=== PATIENT | female | born 1950 | race Caucasian/White ===

== ENCOUNTER 2023-06-09 21:51 | Inpatient (IN) | payer MEDICARE, BC ==
[~2023-06-09] VITALS: Ht 162.6 cm; Wt 51.4 kg
[~2023-06-09 21:51] MED LIST: ASPI325T6 PO; BENICAR40 MG PO; CEPHALEXIN500 M1 PO; COLACE 100100 MG/CAP PO; COZAAR100 MG PO; DULCOLAX S10 MG/SUPP RC; LEVAQUIN 5500 MG/TA1 PO; LIPITOR20 MG PO; LOVENOX 4040 MG/0.4 SQ; MILK OF MA400 MG/52 PO; MULTI VITAMINS1 TAB PO; NORCO 325 MG-51 TAB PO; NORVASC 10MG10 MG PO; PERCOCET 325 MG1 TA2 PO; ROXICODONE 55 MG/TAB PO; SENOKOT S 50 MG1 TAB PO; TENORMIN 5050 MG/TAB PO; VITAMIN C500 MG PO; ZYRTEC 10MG10 MG PO
[2023-06-09 23:30] VITALS: BP 132/80; PULSE 104; TEMP 97.5
[2023-06-09 23:45] VITALS: BP 162/81; PULSE 99
[2023-06-10] VITALS (22 sets, daily range): BP systolic 58–195; BP diastolic 39–83; PULSE 30–101; TEMP 97.3–97.9
[2023-06-10 00:28] LABS: EOS % 0.6 % (0.0-4.0); GRAN # 5.7 K/mm3 (1.4-6.5); LYMPH # 0.7 K/mm3 (1.2-3.4); LYMPH % 9.3 % (20.0-51.0); MEAN CELL VOLUME 77 fl (80.0-100.0); MEAN CORPUSCULAR HGB CONC 32 g/dl (33.0-37.0); MEAN PLATELET VOLUME 10.2 fl (7.4-10.4); MONO # 0.6 K/mm3 (0.1-0.6); MONO % 8.7 % (1.7-9.3); PLATELET COUNT 207 K/mm3 (130-400); RED BLOOD COUNT 3.88 M/mm3 (4.10-5.30); REDCELL DISTRIBUTION WIDTH-CV 21.7 % (11.5-14.5)
[2023-06-10] MEDS ORDERED: Metoprolol Tartrate 50 MG TAB PO ONE (00:30)
[2023-06-10 00:31] LABS: HEMATOCRIT 29.9 % (37.0-47.0); HEMOGLOBIN 9.6 g/dl (12.5-16.0); MEAN CORPUSCULAR HEMOGLOBIN 25 pg (27-31)
[2023-06-10] MEDS ORDERED: Acetaminophen 325 MG TAB PO PRN (00:45)
[2023-06-10] MEDS ORDERED: Ondansetron 4 MG/2 ML VIAL IV PRN (00:45)
[2023-06-10 00:58] LABS: ALANINE AMINOTRANSFERASE 29 U/L (0-55); ALBUMIN 3.2 gm/dL (3.4-4.8); ALKALINE PHOSPHATASE 76 U/L (40-150); ANION GAP 28 mmol/L (7-16); AST,SGOT 44 U/L (5-34); BILIRUBIN,TOTAL 0.9 mg/dL (0.2-1.2); BLOOD UREA NITROGEN 11 mg/dL (10-20); CALCIUM 8.2 mg/dL (8.4-10.2); CHLORIDE 101 mmol/L (98-107); CREATININE, serum 1.44 mg/dL (0.57-1.11); GLUCOSE 115 mg/dL (70-99); MAGNESIUM 1.5 mg/dL (1.6-2.6); SODIUM 142 mmol/L (136-145); TOTAL PROTEIN 5.6 gm/dL (6.2-8.1)
[2023-06-10 00:59] LABS: POTASSIUM 2.6 mmol/L (3.5-4.5)
[2023-06-10 01:00] LABS: ALCOHOL(ethanol),MEDICAL < 10 mg/dL (0-10); CARBON DIOXIDE 13 mmol/L (23-31)
[2023-06-10] MEDS ORDERED: Heparin/D5W 250 ML IV SCH (01:00)
[2023-06-10] MEDS ORDERED: Heparin 5,000 UNITS/ML 1 ML VIAL IV PRN (01:00)
[2023-06-10] MEDS ORDERED: Heparin 5,000 UNITS/ML 1 ML VIAL IV ONE (01:00)
[2023-06-10] MEDS ORDERED: Magnesium Sulfate 4% 50 ML IV ONE (01:15)
[2023-06-10 01:29] LABS: ARTERIAL BLD GAS O2 SATURATION 96.7 % (92-100); ARTERIAL BLD GAS TCO2 CT 15.1; ARTERIAL BLOOD GAS BASE EXCESS -8.5 (-2-2); ARTERIAL BLOOD GAS HCO3 14.4 meq/L (22-26); ARTERIAL BLOOD GAS PO2 93.6 mmHg (80-100); ARTERIAL BLOOD GAS pH 7.42 (7.35-7.45)
[2023-06-10] MEDS ORDERED: NS 1,000 ML IV SCH (01:30)
[2023-06-10 01:32] LABS: ARTERIAL BLOOD GAS PCO2 22.8 mmHg (35-45)
[2023-06-10] MEDS ORDERED: Sodium Bicarbonate 8.4% 50 MEQ/50 ML SYRINGE IV ONE (02:00)
--- NOTE | 2023-06-10 02:33 | NUR ---
Patient arrived to medical unit from [facility] via EMS at approximately 2330. Alert and oriented, and able to make needs known. Denies having pain and discomfort. Peripheral IV to left AC. Started 2nd IV site to right forearm. Currently patient has Cardizem drip and Heparin drip running per orders to IV site on right forearm, and NS and Magnesium running to IV site to left AC. Received Sodium Bicarb IV per orders. Denie SOB and dyspnea. LS CTA. HRI. Telemetry shows A-fib, rate controlled. BSAx4. Indwelling ross catheter present, draining edward, clear urine. UDS sent to lab. Patient's skin is very dry and flaky. Has redness to coccyx. TAMIKO Goodson is aware of critical troponin, potassium, and CO2. Patient in bed with call light within reach. High fall risk rpecautiosn in place. Bed alarm on.
[2023-06-10 02:46] LABS: TRICYCLIC ANTIDEPRESS URINE NEGATIVE (NEGATIVE)
--- NOTE | 2023-06-10 05:30 | NUR ---
Patient's HR 55-58. Call placed to TAMIKO Goodson. New order to decrease rate on Cardizem drip from 15 ml/hr to 5 ml/hr. Order placed for EKG, RT notified. Cardizem drip decreased per orders. Requested to be called if continues to sustain less than 60 in 30 minutes.
--- NOTE | 2023-06-10 06:05 | NUR ---
Patient had been showing sinus gordo on telemetry. EKG shows A-fib, rate of 63. Telemetry currently showing A-fib, rate 60. Called TAMIKO Goodson for update as requested. Continues Cardizem drip at 5 ml/hr at this time. Put on hold if HR decreases to 45.
--- NOTE | 2023-06-10 07:16 | NUR ---
During bedside shift report, BP 98/42. Rechecked with result of 104/39, MAP 55. Stopped Cardizem drip. Call placed to TAMIKO Lynn. Updated on patient's BP, as well as HR. Looks like no telemetry patient is in and out of A-fib, rate currently 55. Order to stop Cardizem drip, and to give PO Metoprolol now. Cardizem drip was already stopped with day shift nurse. Day shift nurse notified that MD wants Metoprolol to be given.
[2023-06-10 08:26] LABS: CALCIUM 7.8 mg/dL (8.4-10.2); CHOLESTEROL RISK RATIO 5.6; CREATININE, serum 1.28 mg/dL (0.57-1.11)
[2023-06-10 08:27] LABS: POTASSIUM 2.8 mmol/L (3.5-4.5)
[2023-06-10] MEDS ORDERED: amLODIPine 10 MG TAB PO SCH (09:00)
[2023-06-10] MEDS ORDERED: Sennosides/Docusate 8.6-50 MG TAB PO SCH (09:00)
[2023-06-10 09:01] LABS: THYROID STIMULATING HORMONE 1.241 uIU/mL (0.350-4.940)
[2023-06-10] MEDS ORDERED: Acetaminophen 500 MG TAB PO SCH (09:15)
[2023-06-10] MEDS ORDERED: Morphine 4 MG/ML VIAL IV ONE ×3 (09:15→17:45)
[2023-06-10 09:19] LABS: TROPONIN-I 0.214 ng/mL (0.00-0.033)
[2023-06-10] MEDS ORDERED: DILTIAZEM IV PRN (09:30)
[2023-06-10] MEDS ORDERED: fentaNYL 50 MCG/ML 2 ML VIAL IV PRN (09:30)
[2023-06-10] MEDS ORDERED: NS IV PRN (09:30)
[2023-06-10] MEDS ORDERED: DILTIAZEM IV SCH (09:30)
[2023-06-10] MEDS ORDERED: NS & 40 mEq KCl 1,000 ML IV SCH (09:30)
[2023-06-10] MEDS ORDERED: NS IV SCH (09:30)
--- NOTE | 2023-06-10 09:35 | NUR ---
HOSPITALIST NOTIFIED OF CRITICAL TROPONIN VALUE
[2023-06-10] MEDS ORDERED: Potassium Chloride 10 mEq/100 mL IV Soln IV SCH (10:00)
--- NOTE | 2023-06-10 10:22 | NUR ---
Initial visit attempt; Patient sleeping, Sewing Pattern Layout Technician looked in on Patricia several times and decided to leave her a card offering Spiritual Care if she so desires. The card lets Patient's know of the availability of Spiritual Care and information letting them know a Sewing Pattern Layout Technician is available for them to pray, keep them in her prayers and/or help them contact their family or whomever they choose to inform of their hospitalization.
[2023-06-10] MEDS ORDERED: Morphine 4 MG/ML VIAL IV PRN (12:00)
[2023-06-10] MEDS ORDERED: Potassium Chloride 100 ML IV SCH (12:30)
[2023-06-10] MEDS ORDERED: Iohexol 300 - 100 ML VIAL IV ONE (13:30)
--- NOTE | 2023-06-10 16:08 | NUR ---
Grievance And Appeals Specialist attended clinical rounds with the team, then attempted to complete intake with patient, however she would not respond or open her eyes when SW stated her name. TONA contacted patient's great niece, Mary Alice (ph#[phone]) who is listed as point of contact. Mary Alice advised [place]. Mary Alice advised she speaks with patient by phone on a daily basis, but had not seen patient in person since her long-term alliance party in February of 2023. Patient was employed as a online banking specialist. Mary Alice grew concerned with patient as she would cancel plans and avoid making plans that would require Mary Alice coming to the home or seeing her in person. Mary Laice also stated patient would say things that were strange. On Thursday, patient was slurring her words which is when she and her , Anibal went to the home and found her in poor condition. Mary Alice became tearful and stated she had to basically "pull" patient out of the home. Mary Alice described the condition of patient's home and stated she did not know how bad things were. Mary Alice described hoarding to include trash and food piled up. Mary Alice again is tearful and fears patient was in her recliner for an extended amount of time. Mary Alice advised patient is normally sharp and was employed for a long time. Mary Alice had not been out to the home in a few years but stated she used to go there a lot as a kid. Patient had told Mary Alice about a year ago her fridge stopped working and she purchased a new one. Mary Alice stated there was a brand new fridge on the porch that was never opened and the broken fridge was still in the kitchen. Mary Alice showed SW a photo of the kitchen which displayed trash piled up with no clear walkway present. TONA discussed Advance Directives with Mary Alice who advised patient had reported this was done and updated (since there are family members who have passed) but Mary Alice fears this is not accurate. A DPOA-HC was signed by patient at the [facility] but it was not witnessed, so it was void. Patient unable to sign at this time, but SW will reassess tomorrow to see if this is something patient is able to sign. Patient has never been , has no children, and her siblings are . Patient has a nephew, Marcial (ph#[phone]) that lives in [place], [place] and is a regional company truck driver. Patient also has a niece, Sima (ph#[phone]) that lives in [place]. Mary Alice is in agreement that patient cannot return home. TONA briefly met with patient who agrees she cannot return home at this time and would like referrals sent in [place] and [facility]. TONA provided Medicare.gov list of options. TONA gave referral to [facility], [facility], [facility], and [facility]. TONA contacted patient's PCP and confirmed they do not have DPOA-HC on file for patient.
--- NOTE | 2023-06-10 16:09 | NUR ---
AUTOMOBILE SEAT COVER INSTALLER ADVANCED NG TUBE FURTHER INTO PT NARES. WAS AT 46 CM AND ADVANCED TO 60 CM AT THE NARE. REPEAT CHEST X-RAY ORDERED TO CONFIRM PLACEMENT
[2023-06-10] MEDS ORDERED: Dextrose (Glucose) 15 GM (4 x 3.75 GM) Chewable TABLET PACK PO PRN (17:00)
[2023-06-10] MEDS ORDERED: Insulin Lispro (HumaLOG) SQ SCH (17:00)
[2023-06-10] MEDS ORDERED: Dextrose 50% Water 25 GM/50 ML SYRINGE IV PRN (17:00)
[2023-06-10] MEDS ORDERED: Glucagon 1 MG VIAL IM PRN (17:00)
--- NOTE | 2023-06-10 17:13 | NUR ---
This nurse called TAYE Olmstead at 1713 to notify her that pt's heart rate had dropped to the 30's and was staying there. This nurse stayed on the phone with TAYE Olmstead until she was able to physically check on pt. When TAYE Baird assessed pt pt would groan but not fully come to. This nurse called a CAT call at [address] pt's room from ICU to assess pt. Upon entering pt's room pt was obtunded and hernandez and color; pt would lift arms slightly off bed in response to sternal rub, but would not respond otherwise. Pt's pulses assessed and found to be weak and thready. VS taken by tech; pt found to be hypotensive 80's systolic and hypoxic with SPO2 82% on room air. Oxy mask placed. Dr. Hercules hospitalist notified and came to bedside immediately. ROSALVA Grande also called and arrived. Pt rapidly declining; Dr. Hercules called pt's family to verify code status. Family states that they would like pt to remain full code. Pt's pulse lost at 1721 and code blue initiated; see code blue documentation. Pt regained pulse at 1729. Dr. Hercules in contact with pt's family. Pt's family requests pt be transitioned to comfort care.
[2023-06-10] MEDS ORDERED: EPINEPHrine 1 MG/10 ML (1:10,000) SYRINGE IV ONE (17:23)
[2023-06-10 17:30] LABS: CALCIUM 7.5 mg/dL (8.4-10.2); CREATININE, serum 1.49 mg/dL (0.57-1.11); MAGNESIUM 2.3 mg/dL (1.6-2.6); PHOSPHOROUS 3.1 mg/dL (2.3-4.7)
[2023-06-10 17:38] LABS: POTASSIUM 6.2 mmol/L (3.5-4.5)
[2023-06-10] MEDS ORDERED: LORazepam 2 MG/ML 1 ML VIAL IV ONE (17:45)
--- NOTE | 2023-06-10 18:30 | NUR ---
Family has chosen [facility].
--- NOTE | 2023-06-10 18:35 | NUR ---
TAYE SCOTT NOTIFIED BROKE HANDLER THAT PT HEARTRATE PRESENTED ZERO ON THE TELE MONITOR. BROKE HANDLER ADELINA SCOTT WENT INTO PT ROOM TO ASSESS- NO HEART RATE PRESENT; PT DECLARED @ 1812 BY TWO NURSE VERIFICATION. PT FAMILY AT BEDSIDE.
--- NOTE | 2023-06-10 18:40 | NUR ---
[facility] notified of patient , referral number [id number]. Patient is not a candidate for tissue, [facility] will be calling.
--- NOTE | 2023-06-10 19:08 | NUR ---
[facility] called with questions.
--- NOTE | 2023-06-10 19:27 | NUR ---
[facility] called back, family has declined eye donation, we may release the body to the home.
--- NOTE | 2023-06-10 19:59 | NUR ---
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
[2023-06-10] MEDS ORDERED: Atorvastatin 20 MG TAB PO SCH (21:00)
[2023-06-10] MEDS ORDERED: MIRTAZAPINE 15 MG PO SCH (21:00)
--- NOTE | 2023-06-11 01:09 | NUR ---
home notified, ross cath discontinued and postmortum care provided by prefabricated houses trimmer. PICC line pulled out, catheter tip intact. 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
== END 2023-06-10 21:15 | disposition expired | DRG 308 ==
LOC: MEDICAL 21:51
PROVIDERS: Physician Assistant; ADMIT Internal Medicine
PROC: 02HV33Z Insertion of Infusion Device into Superior Vena Cava, Percutaneous Approach (ICD-10-PCS; principal; 2023-06-10)
PROC: 5A12012 Performance of Cardiac Output, Single, Manual (ICD-10-PCS; 2023-06-10)
DX: I48.91 Unspecified atrial fibrillation (principal); E43 Unspecified severe protein-calorie malnutrition; Z68.1 Body mass index [BMI] 19.9 or less, adult; N17.9 Acute kidney failure, unspecified; C15.9 Malignant neoplasm of esophagus, unspecified; Z51.5 Encounter for palliative care; E88.89 Other specified metabolic disorders; R79.89 Other specified abnormal findings of blood chemistry; E86.0 Dehydration; R53.81 Other malaise; E87.6 Hypokalemia; E83.42 Hypomagnesemia; M54.9 Dorsalgia, unspecified; I46.9 Cardiac arrest, cause unspecified; I10 Essential (primary) hypertension; E78.5 Hyperlipidemia, unspecified; R13.10 Dysphagia, unspecified; R62.7 Adult failure to thrive; R63.0 Anorexia; F10.20 Alcohol dependence, uncomplicated; Z79.899 Other long term (current) drug therapy; Z87.891 Personal history of nicotine dependence
CPT/HCPCS: C1751; J0171; J1644; J2060; J2270; J3010; J3475; J3480; J7030; Q9967